=== PATIENT | female | born 1990 | race African-American/Black ===

== ENCOUNTER 2021-10-03 10:40 | Inpatient (IN) | payer OTHER ==
[2021-10-03] MEDS ORDERED: AMPICILLIN SODIUM 2 GM VIAL ONE (11:25)
[2021-10-03] MEDS ORDERED: AMPICILLIN - 2 GM in SODIUM CHLORIDE 100 ML IVPB ONE (11:30)
[2021-10-03 12:00] VITALS: BMI 31.0
[2021-10-03] MEDS ORDERED: ELECTROLYTE-148 SOLN 1,000 ML IV SCH ×2 (12:15→13:15)
[2021-10-03 12:46] LABS: BASO % 0.4 % (0-2.0); EOS % 0.8 % (0-4.5); HEMATOCRIT 31.4 % (32.4-45.2); HEMOGLOBIN 10.8 GM/dL (10.7-15.3); MCH 28.9 pg (25.7-33.7); MCHC 34.3 g/dl (32.0-36.0); MEAN CELL VOLUME 84.3 fl (80-96); MEAN PLT VOLUME 7.6 fl (7.5-11.1); MONO % 8.9 % (3.8-10.2); NEUT % 72.9 % (42.8-82.8); PLATELET COUNT 292 10^3/uL (134-434); RBC 3.72 M/mm3 (3.60-5.2); WHITE BLOOD COUNT 7.6 K/mm3 (4.0-10.0)
[2021-10-03] MEDS ORDERED: PROMETHAZINE HCL 25 MG/1 ML VIAL IVPUSH ONE (13:07)
[2021-10-03] MEDS ORDERED: BUTORPHANOL TARTRATE 1 MG/ML VIAL IVPB ONE (13:07)
[2021-10-03] MEDS ORDERED: SODIUM PHOSPHATE/NA BIPHOS 133 ML ENEMA PR ONE (13:10)
[2021-10-03] MEDS ORDERED: OXYTOCIN 30 UNITS in 0.9% NS 30 UNIT/500 ML INFUS.BAG IVPB SCH (13:15)
[2021-10-03 13:24] LABS: ACTIVATED PTT 26.5 SECONDS (25.2-36.5)
[2021-10-03 13:33] LABS: BLOOD UREA NITROGEN 13.6 mg/dL (7-18); CALCIUM 8.6 mg/dL (8.5-10.1); CREATININE 0.6 mg/dL (0.55-1.3)
[2021-10-03 14:12] LABS: INR 1.01 (0.83-1.09); PROTHROMBIN TIME (PATIENT) 11.3 SEC (9.7-13.0)
[2021-10-03] MEDS ORDERED: AMPICILLIN SODIUM 1 GM VIAL ONE (14:42)
[2021-10-03] MEDS ORDERED: OXYTOCIN 30 UNITS in 0.9% NS 30 UNIT/500 ML INFUS.BAG IVPB ONE (14:43)
[2021-10-03] MEDS: AMPICILLIN - 1 GM in SODIUM CHLORIDE 100 ML IVPB SCH ×2 (15:08→22:45)
[2021-10-03] MEDS ORDERED: BUTORPHANOL TARTRATE 2 MG/ML VIAL ONE (16:31)
[2021-10-03] MEDS ORDERED: PROMETHAZINE HCL 25 MG/1 ML VIAL ONE (16:32)
[2021-10-03] MEDS ORDERED: OXYTOCIN 20 UNITS in 0.9% NS 20 UNIT/1,000 ML INFUS.BAG IV ONE (18:40)
[2021-10-03] MEDS ORDERED: BISACODYL 10 MG SUPP.RECT RC PRN (19:12)
[2021-10-03] MEDS ORDERED: METHYLERGONOVINE MALEATE 0.2 MG/1 ML AMP IM PRN (19:12)
[2021-10-03] MEDS ORDERED: BENZOCAINE 20% 57 GM BOTTLE TP PRN (19:12)
[2021-10-03] MEDS ORDERED: ACETAMINOPHEN 325 MG TABLET (FP) PO PRN (19:12)
[2021-10-03] MEDS ORDERED: WITCH HAZEL 50% (TUCKS) 40 PAD/JAR PAD TP PRN (19:12)
[2021-10-03] MEDS ORDERED: BENZOCAINE 28 GM HEMORRHOIDAL OINTMENT TP PRN (19:12)
[2021-10-03] MEDS ORDERED: oxyCODONE HCL 5 MG TABLET PO PRN (19:12)
[2021-10-03] MEDS ORDERED: OXYTOCIN 20 UNITS in 0.9% NS 20 UNIT/1,000 ML INFUS.BAG IV SCH (19:15)
[2021-10-03] MEDS ORDERED: D5W-LR W/ 20 UNITS OXYTOCIN 1,000 ML IV SCH (19:15)
[2021-10-03 20:43] LABS: CORD BASE EXCESS -4.6 mmol/L (0-2); CORD HCO3 21.3 mmHg (20-29); CORD pH 7.322 (7.14-7.44)
[2021-10-03 20:46] LABS: CORD BASE EXCESS -2.9 mmol/L (0-2); CORD HCO3 25.1 mmHg (20-29); CORD PCO2 56.4 mmHg (30-78); CORD pH 7.266 (7.14-7.44)
[2021-10-04 06:59] LABS: BASO % 0.1 % (0-2.0); EOS % 0.3 % (0-4.5); HEMATOCRIT 29.2 % (32.4-45.2); HEMOGLOBIN 9.8 GM/dL (10.7-15.3); LYMPH % 10.1 % (8-40); MCH 28.1 pg (25.7-33.7); MCHC 33.7 g/dl (32.0-36.0); MEAN CELL VOLUME 83.5 fl (80-96); MONO % 8.4 % (3.8-10.2); NEUT % 81.1 % (42.8-82.8); PLATELET COUNT 263 10^3/uL (134-434); RDW 13.3 % (11.6-15.6); WHITE BLOOD COUNT 15.2 K/mm3 (4.0-10.0)
[2021-10-04] MEDS: PRENATAL VITAMINS W/ FOLIC ACID TABLET (FP) PO SCH (10:05)
[2021-10-04] MEDS: IBUPROFEN 600 MG TABLET (FP) PO PRN (10:05)
[2021-10-04] MEDS ORDERED: SENNOSIDES/DOCUSATE COMBO (SENNA PLUS) TABLET (UD) PO PRN (22:00)
[2021-10-05] MEDS: PRENATAL VITAMINS W/ FOLIC ACID TABLET (FP) PO SCH (11:07)
[2021-10-05] MEDS: IBUPROFEN 600 MG TABLET (FP) PO PRN (11:07)
[2021-10-05 11:22] VITALS: BP 109/70; PULSE 88; TEMP 97.7
[2021-10-09 09:33] LABS: POC NITRAZINE POS
== END 2021-10-05 13:30 | disposition home or self-care (01) | DRG 807 ==
LOC: JLDR 10:40 → J3W 21:02
PROVIDERS: ADMIT Obstetrics & Gynecology; ATTEND Obstetrics & Gynecology
PROC: 10E0XZZ Delivery of Products of Conception, External Approach (ICD-10-PCS; principal; 2021-10-03)
DX: O42.92 Full-term premature rupture of membranes, unspecified as to length of time between rupture and onset of labor (principal); Z37.0 Single live birth; Z22.330 Carrier of Group B streptococcus; Z3A.39 39 weeks gestation of pregnancy
CPT/HCPCS: 36415; 36600; 59409; 80048; 82803; 83986-QW; 85025; 85610; 85730; 86780; 86850; 86900; 86901; C9803; U0003; U0005